=== PATIENT | female | born 1995 | race African-American/Black ===

== ENCOUNTER 2023-07-28 16:41 | Emergency (ER) | payer OTHER, SELFPAY ==
--- NOTE | 2023-07-28 16:52 | ED.FEMALEGU ---
HPI - Female Genitourinary General Chief complaint: Urogenital-Female Stated complaint: Bv symptoms Time Seen by Provider: 07/28/23 16:51 Source: patient Mode of arrival: ambulatory Limitations: no limitations History of Present Illness HPI Narrative: Patient is a 27-year-old female who presents with a month of intermittent vaginal odor. Patient states she gets BV often and states it smells and feels the same. Patient denies any discharge and denies any concern for STDs. Patient also requesting a test at this time. Last menstrual cycle was in late June. Denies any low back pain, burning with urination, frequency, urgency, fever, chills, nausea, vomiting, diarrhea. Also requesting refill for Flonase and Zyrtec for her allergies MD elicited complaint: dysuria Related Data Allergies Allergy/AdvReac Type Severity Reaction Status Date / Time aspirin Allergy Hives Verified 07/28/23 17:20 Review of Systems Review of Systems: All systems reviewed & are unremarkable except as noted in HPI and below Constitutional: Constitutional: Denies chills, Denies fever(s), Denies headache(s), Denies malaise and Denies weakness Eyes: Eyes: Denies change in vision, Denies eye discharge and Denies irritation ENT: Denies otalgia, Denies headache(s), Denies nasal congestion, Denies nasal discharge, Denies sinus pain and Denies sore throat Cardiovascular: Cardiovascular: Denies chest pain, Denies edema, Denies palpitations and Denies dyspnea Respiratory: Respiratory: Denies cough and Denies dyspnea Gastrointestinal: Gastrointestinal: Denies abdominal pain, Denies diarrhea, Denies nausea and Denies vomiting Genitourinary: Genitourinary: Denies hematuria, Denies nocturia, Denies dysuria, Denies flank pain, Denies urinary urgency and Reports vaginal odor Musculoskeletal: Musculoskeletal: Denies back pain and Denies numbness Integumentary/Breasts: Skin/Breast: Denies pruritus and Denies rash Neurologic: Denies headache(s), Denies numbness and Denies weakness Psychiatric: Psychiatric: Reports no additional psychiatric complaints Endocrine: Endocrine: Denies palpitations PMFSH Comments At time of signature, agree with nursing past medical, surgical, social and family history. There is no relevant family history pertinent to the presenting complaint. Exam Const: General: cooperative, healthy appearing, comfortable, no acute distress and well nourished Nutritional Appearance: well nourished Orientation/consciousness: patient oriented x3 HENMT: Head: normocephalic and atraumatic Ears: external ears normal Face/Nose/Sinus: Normal external nose present, Normal nares present and normal facial exam Face and sinus: normal facial exam Eyes: General: appearance normal, both eyes and all related structures Pupils: Equal, round and reactive pupils present EOM: EOMs intact bilaterally Neck: Neck: normal visual inspection, full ROM and supple Chest: Chest palpation & inspection: normal inspection of the chest Resp: Effort & Inspection: normal respiratory effort and able to speak in complete sentences Cardio: Rate: regular rate Rhythm: regular rhythm GI: Inspection: normal to inspection GI Palp: No abdominal tenderness and Yes Soft to palpation : General: Yes no CVA tenderness Back/Spine/Pelvis: Back: no CVA tenderness Skin: General skin exam: normal color and no rashes or lesions noted Neuro: General: patient oriented x3 and moves all extremities Cranial nerves: Yes Equal, round and reactive pupils present Extrem: General: normal to inspection and full ROM Psych: Appearance: grossly normal and well kempt Course Course Emergency Course: Patient is aware of diagnosis, understands and agrees to treatment plan. Anticipatory guidance given. Patient agrees to follow-up as directed and is aware of reasons to seek care at the emergency department. Portions of this record may have been created with voice recognition software
[2023-07-28 17:01] VITALS: BP 110/79; PULSE 84; RESP 16; TEMP 36.7; O2SAT 100
== END 2023-07-28 17:23 | disposition home or self-care (01) ==
PROVIDERS: Emergency Provider Nurse Practitioner Family
DX: N76.0 Acute vaginitis (principal)
CPT/HCPCS: 81025; 99213; G0463

== ENCOUNTER 2023-12-18 13:43 | Outpatient (CLI) | payer OTHER, SELFPAY ==
--- NOTE | ~2023-12-18 | US_ITS ---
EXAMINATION: US OB <=14 wk fetus w TV DATE: 12/18/2023 14:21 INDICATION: First trimester dating TECHNIQUE: Real-time pelvic transabdominal and transvaginal ultrasound was performed. COMPARISON: None. FINDINGS: The uterus measures 8.8 x 5.9 x 4.3 cm. There is an intrauterine gestational sac. A yolk sa c is identified. heart motion is identified measuring 120 beats per minute (bpm) by M-mode Dopp ler. The crown rump length measures 3 mm, which correlates with an estimated gestational age of 6 weeks and 0 day(s) (+/-) 4 day(s). The right ovary is not visualized however no right adnexal abnormality is seen. The left ovary measur es 1.9 x 2.6 x 1.5 cm. There is normal vascular flow in the left ovary. There is no free fluid in the pelvis. IMPRESSION: 1. Live intrauterine with an estimated gestational age of 6 weeks and 0 day(s) (+/-) 4 day( s) and an estimated delivery date of 08/12/2024. Reviewed, dictated and finalized at location L. BALL WINDER IMPRESSION: 1. Live intrauterine with an estimated gestational age of 6 weeks and 0 day(s) (+/-) 4 day(s) and an estimated delivery date of 08/12/2024.
== END 2023-12-18 13:44 ==
LOC: GOSHIMG 13:44
PROVIDERS: PCP Obstetrics & Gynecology; Visit Provider Registered Nurse
DX: Z34.90 Encounter for supervision of normal pregnancy, unspecified, unspecified trimester (principal)
CPT/HCPCS: 76801; 76817

== ENCOUNTER 2023-12-30 13:56 | Outpatient (CLI) | payer OTHER, SELFPAY ==
--- NOTE | ~2023-12-30 | US_ITS ---
EXAMINATION: US OB <=14 wk fetus w TV DATE: 12/30/2023 14:19 INDICATION: First trimester viability assessment TECHNIQUE: Real-time pelvic transabdominal and transvaginal ultrasound was performed. COMPARISON: 12/18/2023 FINDINGS: The uterus measures 8.6 x 5.5 x 6.8 cm. There is an intrauterine gestational sac. A yolk sa c is identified. No cardiac motion is identified. The crown rump length measures 10 mm, w hich correlates with an estimated gestational age of 7 weeks and 1 day(s) (+/-) 5 day(s). The right ovary measures 3.6 x 2.4 x 2.3 cm. The left ovary measures 2.9 x 2.2 x 1.4 cm. There is nor mal vascular flow in the ovaries. There is no free fluid in the pelvis. IMPRESSION: 1. 10 mm pole without detectable heartbeat, consistent with failure. Reviewed, dictated and finalized at location L. DESK ANALYST IMPRESSION: 1. 10 mm pole without detectable heartbeat, consistent with jeferson sims.
== END 2023-12-30 13:57 ==
LOC: GOSHIMG 13:57
PROVIDERS: PCP Family Medicine; Visit Provider Obstetrics & Gynecology
DX: O36.80X0 Pregnancy with inconclusive fetal viability, not applicable or unspecified (principal); Z3A.00 Weeks of gestation of pregnancy not specified
CPT/HCPCS: 76801; 76817

== ENCOUNTER 2024-01-02 14:28 | Outpatient (CLI) | payer OTHER, SELFPAY | END 2024-01-02 14:29 | disposition home or self-care (01) | LOC: ANHLAB 14:30 | PROVIDERS: PCP Family Medicine; Visit Provider Obstetrics & Gynecology | DX: O02.1 Missed abortion (principal) | CPT/HCPCS: 36415; 85461; 86850; 86900; 86901 ==

== ENCOUNTER 2024-01-13 12:09 | Outpatient (CLI) | payer OTHER, SELFPAY ==
--- NOTE | ~2024-01-13 | US_ITS ---
EXAMINATION: US OB <=14 wk fetus w TV DATE: 01/13/2024 13:05 INDICATION: Complete or unspecified spontaneous TECHNIQUE: Real-time pelvic transabdominal and transvaginal ultrasound was performed. COMPARISON: None. FINDINGS: The uterus measures 8.4 x 5.1 x 6.2 cm. The previously described intrauterine gestational s ac is no longer evident. There are nabothian cysts of the cervix. No definite products of conception are identified. The endometrial thickness measures 7 mm. The right ovary measures 2.3 x 3.1 x 3.1 cm. The left ovary measures 2.1 x 1.7 x 2.7 cm. There is normal vascular flow in the ovaries. There is n o free fluid in the pelvis. IMPRESSION: 1. Intrauterine gestational sac no longer evident. No definite products of conception identified. Reviewed, dictated and finalized at location L. CUTTER IMPRESSION: 1. Intrauterine gestational sac no longer evident. No definite products of conc eption identified.
== END 2024-01-13 12:10 | disposition home or self-care (01) ==
LOC: ANHIMG 12:10
PROVIDERS: PCP Family Medicine; Visit Provider Obstetrics & Gynecology
DX: O03.9 Complete or unspecified spontaneous abortion without complication (principal)
CPT/HCPCS: 76801; 76817

== ENCOUNTER 2024-02-27 15:35 | Outpatient (CLI) | payer OTHER, SELFPAY ==
--- NOTE | ~2024-02-27 | MR_ITS ---
EXAMINATION: MR pituitary wo/w con DATE: 02/27/2024 17:02 INDICATION: Other specified abnormal findings of blood chemistry. Abnormal prolactin levels. TECHNIQUE: Magnetic resonance imaging (MRI) of the brain and brainstem was performed without and with 12 mL MultiHance intravenous contrast. COMPARISON: None. FINDINGS: The pituitary is normal in size with height of 5 mm. There is a 3 x 2 mm hypoenhancing vers us nonenhancing mass in the pituitary. There are 4 foci of increased T2-weighted signal intensity in the cerebral white matter. There is no intracranial hemorrhage or acute infarction. The ventricles ar e normal in size. There is mild mucosal thickening in the ethmoid sinuses. The orbits are normal. The mastoid air cells are normal. IMPRESSION: 1. 3 mm pituitary mass, which may be a cyst or less likely a pituitary microadenoma. 2. Mild nonspecific cerebral white matter disease. The differential diagnosis includes premature station captain amelia small vessel ischemic disease (especially if the patient has cardiovascular risk factors), demyel inating disease such as multiple sclerosis, drug abuse, vasculitis, or reactive astrocytosis (gliosis ) secondary to nonspecific etiology. Reviewed, dictated and finalized at location E. IMPRESSION: 1. 3 mm pituitary mass, which may be a cyst or less likely a pituitary microade noma. 2. Mild nonspecific cerebral white matter disease. The differential diagnosis i ncludes premature chronic small vessel ischemic disease (especially if the kwame ent has cardiovascular risk factors), demyelinating disease such as multiple sc lerosis, drug abuse, vasculitis, or reactive astrocytosis (gliosis) secondary t o nonspecific etiology.
== END 2024-02-27 15:36 | disposition home or self-care (01) ==
LOC: ANHIMG 15:36
PROVIDERS: PCP Family Medicine; Visit Provider Obstetrics & Gynecology
DX: R79.89 Other specified abnormal findings of blood chemistry (principal); R90.82 White matter disease, unspecified
CPT/HCPCS: 70553; A9577